=== PATIENT | female | born 1985 | race Caucasian/White ===

== ENCOUNTER 2021-06-01 05:14 | Emergency (ER) | payer OTHER ==
[~2021-06-01] VITALS: Ht 162.6 cm; Wt 104.3 kg
[2021-06-01] MEDS ORDERED: LEVO-T75 MCG PO (05:26)
[2021-06-01] MEDS ORDERED: SHAROBEL0.35 MG PO (05:27)
[2021-06-01 05:39] LABS: URINE BILIRUBIN NEGATIVE (Negative); URINE BLOOD NEGATIVE (Negative); URINE CLARITY CLEAR; URINE COLOR YELLOW; URINE GLUCOSE-RANDOM NEGATIVE (Negative); URINE KETONES NEGATIVE (Negative); URINE LEUKOCYTES-REFLEX NEGATIVE (Negative); URINE NITRITE-REFLEX NEGATIVE (Negative); URINE PROTEIN NEGATIVE (Negative); URINE SPECIFIC GRAVITY >= 1.030 (1.005-1.030); URINE UROBILINOGEN 0.2 E.U./dl (0.2-1.0)
[2021-06-01 05:39] LABS: ABSOLUTE BASOPHILS 0.1 thou/uL (0.0-0.2); ABSOLUTE EOSINOPHILS 0.2 thou/uL (0.0-0.7); ABSOLUTE MONOCYTES 0.4 thou/uL (0.0-1.2); ABSOLUTE NEUTROPHILS 4.1 thou/uL (1.6-8.1); BASOPHILS 0.9 %; EOSINOPHILS 2.9 %; HEMATOCRIT 41.2 % (37.0-47.0); HEMOGLOBIN 14.2 gm/dL (12.0-15.0); LYMPHOCYTES 29.2 %; MCH 31.9 pg (26.0-34.0); MCHC 34.6 g/dL (28.0-37.0); MCV 92.4 fL (80.0-100.0); MONOCYTES 6.4 %; MPV 6.6 fl. (7.2-11.1); NUCLEATED RBCS 0 /100WBC; PLATELET COUNT* 290 thou/uL (150-400); POLYS 60.6 %; RBC 4.45 mil/uL (4.20-5.00); RDW-CV 12.6 % (10.5-14.5); WBC 6.8 thou/uL (4.0-11.0)
[2021-06-01 05:51] LABS: CALCIUM 8.5 mg/dL (8.5-10.1); CREATININE 0.9 mg/dL (0.6-1.3)
[2021-06-01] MEDS ORDERED: ZOFRAN ODT4 MG DISSOLVE (08:09)
[2021-06-01] MEDS ORDERED: HYDROCODON-ACE1 EAC7 PO (08:09)
[2021-06-01 08:20] VITALS: BP 129/87
== END 2021-06-01 08:20 | disposition home or self-care (01) ==
LOC: M.ERS 05:14
PROVIDERS: Emergency Medicine
DX: R10.31 Right lower quadrant pain (principal); Z79.899 Other long term (current) drug therapy